=== PATIENT | female | born 1985 | race Asian ===

== ENCOUNTER 2023-02-19 16:12 | Emergency (ER) | payer OTHER ==
[~2023-02-19] VITALS: Ht 162.6 cm; Wt 76.2 kg
[2023-02-19 17:27] LABS: HEMATOCRIT 34.4 % (36.0-45.00); HEMOGLOBIN 11.4 g/dL (12.0-15.00); MEAN CELL VOLUME 77.9 fL (80.00-100.00); MEAN CORPUSCULAR HEMOGLOBIN 25.9 pg (27.00-32.0); MEAN CORPUSCULAR HGB CONC 33.2 g/dl (32.0-36.0); PLATELET COUNT 229 K/uL (150-450); RED BLOOD COUNT 4.42 M/uL (4.00-6.00); RED CELL DISTRIBUTION WIDTH 15.1 % (11.5-14.5)
== END 2023-02-19 20:29 | disposition home or self-care (01) ==
LOC: ER 16:13
PROVIDERS: Nurse Practitioner Family
DX: J04.0 Acute laryngitis (principal); R49.0 Dysphonia; Z20.822 Contact with and (suspected) exposure to COVID-19